=== PATIENT | female | born 1980 | race African-American/Black ===

== ENCOUNTER 2017-08-26 20:17 | Emergency (ER) | payer SELFPAY ==
--- NOTE | 2017-08-26 22:32 | RAD ---
CHEST PA AND LATERAL: History: 37-year-old female with cough, congestion, and fever for two days. FINDINGS: Heart size is normal. The lungs are clear. No pneumonia, edema, pleural effusion or other acute proce ss. IMPRESSION: No acute intrathoracic disease. No evidence for pneumonia. POS: [facility]
== END 2017-08-26 22:17 | disposition home or self-care (01) ==
LOC: ERS 20:17
DX: J06.9 Acute upper respiratory infection, unspecified (principal); G43.909 Migraine, unspecified, not intractable, without status migrainosus; I10 Essential (primary) hypertension
CPT/HCPCS: 71020; 99283

== ENCOUNTER 2017-11-14 14:49 | Emergency (ER) | payer SELFPAY | END 2017-11-14 19:23 | disposition left against medical advice (07) | LOC: ERS 14:49 | DX: Z53.21 Procedure and treatment not carried out due to patient leaving prior to being seen by health care provider (principal) ==

== ENCOUNTER 2017-11-14 19:40 | Emergency (ER) | payer SELFPAY ==
[2017-11-14] MEDS ORDERED: Ketorolac Tromethamine 30 MG/ML VIAL ONE (20:06)
[2017-11-14] MEDS ORDERED: Metoclopramide HCl 10 MG/2 ML VIAL ONE (20:06)
[2017-11-14] MEDS ORDERED: diphenhydrAMINE 50 MG/ML VIAL ONE (20:06)
== END 2017-11-14 21:23 | disposition home or self-care (01) ==
LOC: SCSER 19:40
DX: G43.909 Migraine, unspecified, not intractable, without status migrainosus (principal); I10 Essential (primary) hypertension
CPT/HCPCS: 96365; 96375; J1200; J1885; J2765

== ENCOUNTER 2017-12-15 07:49 | Emergency (ER) | payer SELFPAY ==
[2017-12-15 08:45] LABS: #Basophils 0.1 thou/uL (0.0-0.2); #Eosinphils 0.3 thou/uL (0.0-0.7); #Lymphocytes 2.9 thou/uL (1.20-3.40); #Monocytes 0.5 thou/uL (0.11-0.59); #Neutrophils 4.8 thou/uL (1.40-6.50); %Basophils 1.4 % (0.0-1.0); %Eosinophils 3.4 % (0.0-10.0); %Lymphocytes 33.9 % (21.0-51.0); %Monocytes 5.7 % (0.0-10.0); %Neutrophils 55.7 % (42.0-75.0); Hemoglobin 12.9 g/dL (12.0-16.0); Mean Corpuscular Hemoglobin 32.2 pg (27.0-31.0); Mean Corpuscular Volume 97.5 fl (81.0-99.0); Mean Platelet Volume 7.4 fL (7.4-10.4); Platelet Count 287 thou/uL (130-400); RBC Distribution Width 13.3 % (11.5-14.5); Red Blood Cell (RBC) Count 4.02 mill/uL (4.20-5.40); White Blood Cell (WBC) Count 8.7 thou/uL (4.8-10.8)
[2017-12-15 09:00] LABS: BHCG - Serum Negative (NEGATIVE); Pregs Control Background? CLEAR/WHITE (CLR/WHITE); Pregs Control Bar Appear? YES (CONTROL BAR)
== END 2017-12-15 09:19 | disposition home or self-care (01) ==
LOC: ERS 07:49
DX: N94.6 Dysmenorrhea, unspecified (principal); G43.909 Migraine, unspecified, not intractable, without status migrainosus; I10 Essential (primary) hypertension; Z79.899 Other long term (current) drug therapy
CPT/HCPCS: 36415; 84703; 85025; 99284

== ENCOUNTER 2017-12-16 16:13 | Emergency (ER) | payer SELFPAY ==
[2017-12-16 16:58] LABS: #Basophils 0.1 thou/uL (0.0-0.2); #Eosinphils 0.2 thou/uL (0.0-0.7); #Lymphocytes 4.1 thou/uL (1.20-3.40); #Monocytes 0.4 thou/uL (0.11-0.59); #Neutrophils 4.1 thou/uL (1.40-6.50); %Basophils 1.2 % (0.0-1.0); %Eosinophils 2.4 % (0.0-10.0); %Lymphocytes 46.1 % (21.0-51.0); %Monocytes 4.6 % (0.0-10.0); %Neutrophils 45.7 % (42.0-75.0); Hemoglobin 13.7 g/dL (12.0-16.0); Mean Corpuscular HGB CONC 35.1 g/dL (32.0-36.0); Mean Corpuscular Hemoglobin 33.2 pg (27.0-31.0); Mean Corpuscular Volume 94.6 fl (81.0-99.0); Mean Platelet Volume 8.9 fL (7.4-10.4); Platelet Count 304 thou/uL (130-400); RBC Distribution Width 13.2 % (11.5-14.5); Red Blood Cell (RBC) Count 4.12 mill/uL (4.20-5.40); White Blood Cell (WBC) Count 8.9 thou/uL (4.8-10.8)
[2017-12-16 17:03] LABS: Bilirubin Negative (Negative); Blood, Urine Large (Negative); Clarity Cloudy (Clear); Glucose, Urine (Dipstick) Negative (Negative); Leukocyte Negative (Negative); Nitrite Negative (Negative); Protein, Urine (Dipstick) Trace mg/dL (Neg-Trace); Specific Gravity, Urine 1.015 (1.005-1.030); Urobilinogen 0.2 mg/dL (0.2-1.0)
[2017-12-16 17:06] LABS: BHCG - Serum Negative (NEGATIVE); Pregs Control Background? CLEAR/WHITE (CLR/WHITE); Pregs Control Bar Appear? YES (CONTROL BAR)
[2017-12-16 17:12] LABS: RBC/HPF 21-50 HPF (0-3)
[2017-12-16] MEDS ORDERED: Ibuprofen 600 MG TAB ONE (17:12)
[2017-12-16 17:13] LABS: Bacteria/HPF 1+ HPF (None Seen)
[2017-12-19 00:56] LABS: Chlamydia by PCR Not Detected (NotDetected); GC by PCR Not Detected (NotDetected)
== END 2017-12-16 17:24 | disposition home or self-care (01) ==
LOC: SCSER 16:13
DX: N94.6 Dysmenorrhea, unspecified (principal); N93.9 Abnormal uterine and vaginal bleeding, unspecified; G43.909 Migraine, unspecified, not intractable, without status migrainosus; I10 Essential (primary) hypertension; Z79.899 Other long term (current) drug therapy
CPT/HCPCS: 36415; 81003; 81015; 84703; 85025; 87480; 87491; 87510; 87591; 87660; 99284

== ENCOUNTER 2018-07-05 13:23 | Emergency (ER) | payer SELFPAY ==
[2018-07-05] MEDS ORDERED: cloNIDine 0.1 MG TAB ONE (14:02)
[2018-07-05 14:19] LABS: #Basophils 0.1 thou/uL (0.0-0.2); #Lymphocytes 1.8 thou/uL (1.20-3.40); #Monocytes 0.3 thou/uL (0.11-0.59); %Basophils 0.7 % (0.0-1.0); %Lymphocytes 17.8 % (21.0-51.0); %Monocytes 3.1 % (0.0-10.0); %Neutrophils 78.5 % (42.0-75.0); Hemoglobin 13.4 g/dL (12.0-16.0); Mean Corpuscular HGB CONC 33.2 g/dL (32.0-36.0); Mean Corpuscular Hemoglobin 31.8 pg (27.0-31.0); Mean Corpuscular Volume 95.6 fL (78.0-98.0); Mean Platelet Volume 9.1 fL (7.4-10.4); Platelet Count 265 thou/uL (130-400); RBC Distribution Width 11.4 % (11.5-14.5); Red Blood Cell (RBC) Count 4.23 mill/uL (4.20-5.40); White Blood Cell (WBC) Count 10.1 thou/uL (4.8-10.8)
[2018-07-05 14:24] LABS: BHCG - Serum Negative (NEGATIVE); Pregs Control Background? CLEAR/WHITE (CLR/WHITE); Pregs Control Bar Appear? YES (CONTROL BAR)
[2018-07-05 14:34] LABS: ALT (SGPT) 17 U/L (8-55); AST (SGOT) 19 U/L (5-34); Albumin 4.7 g/dL (3.5-5.0); Alkaline Phosphatase 94 U/L (40-150); Anion Gap 16 mmol/L (10-20); BUN (Urea Nitrogen) 9 mg/dL (7.0-18.7); Bilirubin, Total 0.3 mg/dL (0.2-1.2); Calc. Creatinine Clearance 0 mL/min (70-130); Calcium 10.1 mg/dL (7.8-10.44); Carbon Dioxide 22 mmol/L (22-29); Chloride 106 mmol/L (98-107); Estimated GFR-MDRD Greater than 90; Globulin 4.2 g/dL (2.4-3.5); Glucose 116 mg/dL (70-105); Potassium 3.7 mmol/L (3.5-5.1); Protein, Total 8.9 g/dL (6.0-8.3); Sodium 140 mmol/L (136-145); Troponin I Less than 0.010 ng/mL (< 0.028)
--- NOTE | 2018-07-05 15:02 | RAD ---
RADIOGRAPH RIGHT ANKLE THREE VIEWS: 07/05/2018 HISTORY: A 38-year-old female with persistent bilateral ankle pain after a twisting injury last week. FINDINGS: The ankle mortise is congruent. Small osteophytes at the inferomedial and inferolateral aspects of t he ankle mortise. The talar dome is maintained. No fracture or subluxation. IMPRESSION: 1. No fracture. 2. Mild osteoarthrosis. POS: [facility]
--- NOTE | 2018-07-05 15:02 | RAD ---
SINGLE VIEW OF THE CHEST: Comparison: 09-24-15 History: High blood pressure, chest pain. FINDINGS: Single view of the chest shows a normal sized cardiomediastinal silhouette. There is no evidence of c onsolidation, mass, or pleural effusion. The bones are unremarkable. IMPRESSION: No evidence of acute cardiopulmonary disease. POS: [facility]
== END 2018-07-05 15:02 | disposition home or self-care (01) ==
LOC: SCSER 13:23
DX: S93.401A Sprain of unspecified ligament of right ankle, initial encounter (principal); I10 Essential (primary) hypertension; R00.0 Tachycardia, unspecified; G43.909 Migraine, unspecified, not intractable, without status migrainosus; X50.1XXA Overexertion from prolonged static or awkward postures, initial encounter
CPT/HCPCS: 71045; 80053; 84484; 84703; 85025; 85379; 93005

== ENCOUNTER 2018-07-29 06:17 | Emergency (ER) | payer SELFPAY ==
[2018-07-29] MEDS ORDERED: Ketorolac Tromethamine 30 MG/ML VIAL ONE (06:35)
[2018-07-29 07:09] LABS: #Basophils 0.2 thou/uL (0.0-0.2); #Eosinphils 0.3 thou/uL (0.0-0.7); #Lymphocytes 3.2 thou/uL (1.20-3.40); #Monocytes 1.2 thou/uL (0.11-0.59); #Neutrophils 8.3 thou/uL (1.40-6.50); %Basophils 1.4 % (0.0-1.0); %Lymphocytes 24.4 % (21.0-51.0); %Monocytes 9.2 % (0.0-10.0); Hemoglobin 10.7 g/dL (12.0-16.0); Mean Corpuscular HGB CONC 34.5 g/dL (32.0-36.0); Mean Corpuscular Hemoglobin 32.6 pg (27.0-31.0); Mean Corpuscular Volume 94.6 fL (78.0-98.0); Mean Platelet Volume 8.1 fL (7.4-10.4); Platelet Count 191 thou/uL (130-400); RBC Distribution Width 11.8 % (11.5-14.5); Red Blood Cell (RBC) Count 3.28 mill/uL (4.20-5.40); White Blood Cell (WBC) Count 13.2 thou/uL (4.8-10.8)
[2018-07-29 07:17] LABS: BHCG - Serum Negative (NEGATIVE); Pregs Control Background? CLEAR/WHITE (CLR/WHITE); Pregs Control Bar Appear? YES (CONTROL BAR)
[2018-07-29 07:25] LABS: Troponin I Less than 0.010 ng/mL (< 0.028)
[2018-07-29 07:26] LABS: CKMB 9.3 ng/mL (0-6.6)
[2018-07-29 08:09] LABS: ALT (SGPT) 16 U/L (8-55); AST (SGOT) 31 U/L (5-34); Albumin 3.9 g/dL (3.5-5.0); Alkaline Phosphatase 77 U/L (40-150); Anion Gap 14 mmol/L (10-20); BUN (Urea Nitrogen) 8 mg/dL (7.0-18.7); Bilirubin, Total 0.2 mg/dL (0.2-1.2); CK (CPK) 1571 U/L (29-168); Calc. Creatinine Clearance 0 mL/min (70-130); Calcium 8.6 mg/dL (7.8-10.44); Carbon Dioxide 21 mmol/L (22-29); Chloride 104 mmol/L (98-107); Estimated GFR-MDRD 89; Globulin 3.3 g/dL (2.4-3.5); Glucose 94 mg/dL (70-105); Potassium 3.7 mmol/L (3.5-5.1); Protein, Total 7.2 g/dL (6.0-8.3); Sodium 135 mmol/L (136-145)
--- NOTE | 2018-07-29 08:36 | RAD ---
SINGLE VIEW CHEST: Date: 07/29/18 COMPARISON: 07/05/18. HISTORY: Cough for 3 days. Fever. FINDINGS: Single view of the chest shows a normal sized cardiomediastinal silhouette. There is no evidence of c onsolidation, mass, or pleural effusion. The bones are unremarkable. IMPRESSION: No evidence of acute cardiopulmonary disease. POS: [facility]
[2018-07-29] MEDS ORDERED: Acetaminophen 500 MG TAB ONE (08:42)
[2018-07-29 08:53] LABS: Bilirubin Negative (Negative); Blood, Urine Moderate (Negative); Clarity Clear (Clear); Glucose, Urine (Dipstick) Negative (Negative); Leukocyte Negative (Negative); Nitrite Negative (Negative); Protein, Urine (Dipstick) Negative (Neg-Trace); Specific Gravity, Urine 1.015 (1.005-1.030); Urobilinogen 0.2 mg/dL (0.2-1.0); pH, Urine 7.5 (5.0-9.0)
[2018-07-29 09:02] LABS: Bacteria/HPF None Seen HPF (None Seen); Squamous Epithelial None Seen HPF (0-3); WBC/HPF None Seen HPF (0-3)
[2018-07-29 09:03] LABS: Crystals/HPF 1+ STARCH HPF (Negative)
[2018-07-29 09:05] LABS: Hyaline Casts/LPF NONE SEEN LPF (0-3 Hyaline)
[2018-07-29 11:32] LABS: CKMB 6.2 ng/mL (0-6.6); Troponin I Less than 0.010 ng/mL (< 0.028)
[2018-07-29] MEDS ORDERED: Acetaminophen 325 MG TAB ONE (16:21)
[2018-07-29] MEDS ORDERED: HYDROcodone/Acetaminophen 5/325 mg Tablet ONE ×2 (16:22→21:21)
== END 2018-07-30 00:53 | disposition home or self-care (01) ==
LOC: SCSER 06:17
DX: R50.9 Fever, unspecified (principal); R05 Cough; R09.81 Nasal congestion; R11.0 Nausea; D64.9 Anemia, unspecified; M62.82 Rhabdomyolysis; I10 Essential (primary) hypertension; Z79.899 Other long term (current) drug therapy
CPT/HCPCS: 36415; 71045; 80053; 81003; 81015; 82553; 83605; 84484; 84703; 85025; 87804; 93005; 96360; 96361; J1885

== ENCOUNTER 2018-08-12 15:47 | Outpatient (CLI) | payer OTHER ==
--- NOTE | 2018-08-12 21:13 | MRI ---
RIGHT ANKLE MRI WITHOUT IV CONTRAST: HISTORY: A 38-year-old female with a history of S93.401D, sprain of right ankle, subsequent encounter. Contin ued pain and swelling of the lateral malleolus, after an injury at work. FINDINGS: There is indistinction of the anterior talofibular ligament, evidence for anterior talofibular ligame nt sprain. There is also mild indistinction of the calcaneofibular ligament, suggesting some possibl e associated sprain as well. The posterior talofibular ligament and the medial collateral ligament c omplex regions appear intact. There is a small, 0.5 cm in diameter, subchondral cystic focus of the central medial tibia, at the tibiotalar joint. Probably a small osteochondral lesion. The syndesmot ic ligament appears intact. The flexure, extensor, and peroneus tendons appear intact. The Achilles tendon and the plantar fascia are unremarkable. No evidence for other significant acute abnormal ma rrow signal. Sinus tarsi in the spring ligament regions are unremarkable. Minimal indistinction of the inferior talofibular ligament and the calcaneal fibular ligament, eviden ce for a minimal sprain. Small osteochondral lesion involving the distal central, medial tibia at the tibiotalar joint. No ev idence for other significant acute internal derangement. POS: [facility]
== END 2018-08-12 15:48 | disposition home or self-care (01) ==
LOC: MRI 15:47
PROVIDERS: ATTEND Family Medicine
DX: S93.401D Sprain of unspecified ligament of right ankle, subsequent encounter (principal)

== ENCOUNTER 2018-09-22 20:48 | Emergency (ER) | payer SELFPAY ==
[2018-09-22] MEDS ORDERED: Morphine 4 MG/ML Carpuject ONE ×2 (21:05→22:58)
[2018-09-22] MEDS ORDERED: Ondansetron PF 4 MG/2 ML Vial ONE (21:05)
[2018-09-22 21:20] LABS: Bilirubin Negative (Negative); Blood, Urine Negative (Negative); Clarity Slightly Cloudy (Clear); Glucose, Urine (Dipstick) Negative (Negative); Leukocyte Negative (Negative); Nitrite Negative (Negative); Protein, Urine (Dipstick) Negative (Neg-Trace); Urobilinogen 0.2 mg/dL (0.2-1.0)
[2018-09-22 21:23] LABS: Pregnancy Test - Urine (BHCG) Negative (Negative); Pregu Control Background? CLEAR/WHITE (CLR/WHITE); Pregu Control Bar Appear? YES (CONTROL BAR)
[2018-09-22 21:28] LABS: #Basophils 0.2 thou/uL (0.0-0.2); #Eosinphils 0.4 thou/uL (0.0-0.7); #Lymphocytes 4.5 thou/uL (1.20-3.40); #Neutrophils 4.6 thou/uL (1.40-6.50); %Basophils 1.4 % (0.0-1.0); %Eosinophils 3.3 % (0.0-10.0); %Lymphocytes 42.2 % (21.0-51.0); %Monocytes 9.7 % (0.0-10.0); %Neutrophils 43.4 % (42.0-75.0); Hemoglobin 13.1 g/dL (12.0-16.0); Mean Corpuscular HGB CONC 33.6 g/dL (32.0-36.0); Mean Corpuscular Hemoglobin 33.1 pg (27.0-31.0); Mean Corpuscular Volume 98.4 fL (78.0-98.0); Mean Platelet Volume 7.9 fL (7.4-10.4); Platelet Count 268 thou/uL (130-400); RBC Distribution Width 12.5 % (11.5-14.5); Red Blood Cell (RBC) Count 3.95 mill/uL (4.20-5.40); White Blood Cell (WBC) Count 10.6 thou/uL (4.8-10.8)
[2018-09-22 21:43] LABS: ALT (SGPT) 35 U/L (8-55); AST (SGOT) 141 U/L (5-34); Albumin 4.1 g/dL (3.5-5.0); Alkaline Phosphatase 76 U/L (40-150); Anion Gap 15 mmol/L (10-20); BUN (Urea Nitrogen) 5 mg/dL (7.0-18.7); Bilirubin, Total 0.3 mg/dL (0.2-1.2); Calc. Creatinine Clearance 0 mL/min (70-130); Calcium 8.6 mg/dL (7.8-10.44); Carbon Dioxide 23 mmol/L (22-29); Chloride 102 mmol/L (98-107); Estimated GFR-MDRD 89; Globulin 3.6 g/dL (2.4-3.5); Glucose 105 mg/dL (70-105); Potassium 3.4 mmol/L (3.5-5.1); Protein, Total 7.7 g/dL (6.0-8.3); Sodium 137 mmol/L (136-145)
--- NOTE | 2018-09-22 22:13 | CT ---
CT ABDOMEN AND PELVIS NONCONTRAST: 09/22/2018 HISTORY: Right flank pain and lower back pain for three days. COMPARISON: Post contrast CT abdomen and pelvis from 01/14/2017. FINDINGS: Lack of intravenous contrast limits sensitivity for evaluation of the parenchymal organs. However, t he lung bases, liver, spleen, pancreas, bilateral adrenal glands, kidneys, and urinary bladder demons trate a grossly normal, nonenhanced CT appearance. No renal calculi are seen bilaterally, and there is no hydronephrosis. The visualized proximal urete rs are normal in caliber, and no ureteral calculus is visualized. The distal ureters are not well vi sualized, and no definitive calcifications are seen along the expected course of either ureter. Ther e are gonadal vein calcifications seen bilaterally. Multiple calcifications seen in the pelvis are l ikely attributable to multiple phleboliths, which were also present on prior exam. The appendix is visualized and is normal in caliber. The uterus has a grossly normal CT appearance for the patient's age. A low density area is seen in t he expected location of the cervix, which may represent a nabothian cyst. There is a small amount of retained fecal material in the ascending colon. The small bowel is normal in caliber. IMPRESSION: 1. Limited evaluation of the distal ureters bilaterally, but no definitive ureteral calculus is seen . There are no renal calculi identified, and there is no hydronephrosis. 2. No CT evidence of appendicitis. 3. Small to moderate amount of retained fecal material seen in the ascending colon. POS: [facility]
[2018-09-22] MEDS ORDERED: Polyethylene Glycol 3350 17 GM Packet ONE (22:21)
== END 2018-09-22 23:28 | disposition home or self-care (01) ==
LOC: SCSER 20:48
DX: K59.00 Constipation, unspecified (principal); G43.909 Migraine, unspecified, not intractable, without status migrainosus; I10 Essential (primary) hypertension; Z79.899 Other long term (current) drug therapy
CPT/HCPCS: 74176; 80053; 81003; 81025; 85025; 96361; 96372; 96374; 96375; 96376; J2270; J2405

== ENCOUNTER 2018-12-28 23:49 | Emergency (ER) | payer SELFPAY ==
[2018-12-29] MEDS ORDERED: Acetaminophen 500 MG TAB ONE (00:25)
[2018-12-29] MEDS ORDERED: Metoclopramide HCl 10 MG/2 ML VIAL ONE (00:25)
[2018-12-29] MEDS ORDERED: diphenhydrAMINE 50 MG/ML VIAL ONE (00:25)
== END 2018-12-29 01:34 | disposition home or self-care (01) ==
LOC: SCSER 23:49
DX: G43.909 Migraine, unspecified, not intractable, without status migrainosus (principal); M54.41 Lumbago with sciatica, right side; I10 Essential (primary) hypertension; Z79.899 Other long term (current) drug therapy
CPT/HCPCS: 96365; 96375; J1200; J2765

== ENCOUNTER 2019-04-25 11:13 | Emergency (ER) | payer SELFPAY ==
[2019-04-25] MEDS ORDERED: HYDROcodone/Acetaminophen 10/325 mg Tablet ONE (12:05)
[2019-04-25 12:35] LABS: #Basophils 0.1 thou/uL (0.0-0.2); #Eosinphils 0.2 thou/uL (0.0-0.7); #Lymphocytes 3.7 thou/uL (1.20-3.40); #Monocytes 0.5 thou/uL (0.11-0.59); #Neutrophils 5.9 thou/uL (1.40-6.50); %Basophils 1.4 % (0.0-1.0); %Eosinophils 1.5 % (0.0-10.0); %Lymphocytes 35.7 % (21.0-51.0); %Monocytes 4.8 % (0.0-10.0); %Neutrophils 56.6 % (42.0-75.0); Hemoglobin 13.9 g/dL (12.0-16.0); Mean Corpuscular Hemoglobin 33.6 pg (27.0-31.0); Mean Corpuscular Volume 98.7 fL (78.0-98.0); Mean Platelet Volume 8.5 fL (7.4-10.4); Platelet Count 302 thou/uL (130-400); RBC Distribution Width 11.9 % (11.5-14.5); Red Blood Cell (RBC) Count 4.15 mill/uL (4.20-5.40); White Blood Cell (WBC) Count 10.4 thou/uL (4.8-10.8)
[2019-04-25 12:42] LABS: BHCG - Serum Negative (NEGATIVE); Pregs Control Background? CLEAR/WHITE (CLR/WHITE); Pregs Control Bar Appear? YES (CONTROL BAR)
[2019-04-25 12:57] LABS: ALT (SGPT) 8 U/L (8-55); AST (SGOT) 11 U/L (5-34); Albumin 4.5 g/dL (3.5-5.0); Alkaline Phosphatase 99 U/L (40-150); Anion Gap 15 mmol/L (10-20); BUN (Urea Nitrogen) 9 mg/dL (7.0-18.7); Bilirubin, Total 0.2 mg/dL (0.2-1.2); Calc. Creatinine Clearance 0 mL/min (70-130); Calcium 9.4 mg/dL (7.8-10.44); Carbon Dioxide 23 mmol/L (22-29); Chloride 103 mmol/L (98-107); Estimated GFR-MDRD 88; Globulin 3.6 g/dL (2.4-3.5); Glucose 93 mg/dL (70-105); Lipase 50 U/L (8-78); Potassium 4.1 mmol/L (3.5-5.1); Protein, Total 8.1 g/dL (6.0-8.3); Sodium 137 mmol/L (136-145)
[2019-04-25 14:13] LABS: Bilirubin Negative (Negative); Blood, Urine Negative (Negative); Clarity Clear (Clear); Glucose, Urine (Dipstick) Normal (Negative); Leukocyte Negative Leu/uL (Negative); Nitrite Negative (Negative); Protein, Urine (Dipstick) Negative (Neg-Trace); Urobilinogen Normal mg/dL (Less than 2)
== END 2019-04-25 14:50 | disposition home or self-care (01) ==
LOC: ERS 11:13
DX: R10.9 Unspecified abdominal pain (principal); G43.909 Migraine, unspecified, not intractable, without status migrainosus; I10 Essential (primary) hypertension; Z79.899 Other long term (current) drug therapy
CPT/HCPCS: 36415; 80053; 81003; 83690; 84703; 85025; 99284

== ENCOUNTER 2020-11-04 18:41 | Emergency (ER) | payer SELFPAY ==
[2020-11-04] MEDS ORDERED: HYDROcodone/Acetaminophen 5/325 mg Tablet ONE (19:07)
== END 2020-11-04 19:28 | disposition home or self-care (01) ==
LOC: ERS 18:41
DX: K02.9 Dental caries, unspecified (principal); I10 Essential (primary) hypertension
CPT/HCPCS: 99283

== ENCOUNTER 2021-12-24 21:46 | Inpatient (IN) | payer SELFPAY ==
[2021-12-25] MEDS ORDERED: Acetaminophen 500 MG TAB ONE (01:00)
[2021-12-25 01:24] LABS: Bilirubin Negative (Negative); Blood, Urine Negative (Negative); Clarity Clear (Clear); Glucose, Urine (Dipstick) Normal (Negative); Ketone, Urine Negative (Negative); Leukocyte Negative Leu/uL (Negative); Nitrite Negative (Negative); Pregnancy Test - Urine (BHCG) Negative (Negative); Pregu Control Background? CLEAR/WHITE (CLR/WHITE); Pregu Control Bar Appear? YES (CONTROL BAR); Protein, Urine (Dipstick) Negative (Neg-Trace); Specific Gravity 1.012 (1.002-1.036); Specific Gravity, Urine 1.012 (1.002-1.036); Urobilinogen Normal mg/dL (Less than 2)
[2021-12-25 01:33] LABS: #Basophils 0.2 thou/uL (0.0-0.2); #Eosinphils 0.3 thou/uL (0.0-0.7); #Lymphocytes 4.4 thou/uL (1.20-3.40); #Monocytes 0.7 thou/uL (0.11-0.59); #Neutrophils 8.4 thou/uL (1.40-6.50); %Basophils 1.1 % (0.0-1.0); %Lymphocytes 31.8 % (21.0-51.0); %Monocytes 4.6 % (0.0-10.0); %Neutrophils 60.4 % (42.0-75.0); Hemoglobin 15.1 g/dL (12.0-16.0); Mean Corpuscular HGB CONC 34.1 g/dL (32.0-36.0); Mean Corpuscular Hemoglobin 33.8 pg (27.0-31.0); Mean Corpuscular Volume 99.2 fL (78.0-98.0); Mean Platelet Volume 7.5 fL (7.4-10.4); Platelet Count 373 thou/uL (130-400); RBC Distribution Width 11.9 % (11.5-14.5); Red Blood Cell (RBC) Count 4.46 mill/uL (4.20-5.40)
[2021-12-25 01:52] LABS: ALT (SGPT) 12 U/L (8-55); AST (SGOT) 15 U/L (5-34); Alkaline Phosphatase 93 U/L (40-110); Anion Gap 14 mmol/L (10-20); BUN (Urea Nitrogen) 10 mg/dL (7.0-18.7); Bilirubin, Total 0.2 mg/dL (0.2-1.2); Calc. Creatinine Clearance 0 mL/min (70-130); Calcium 10.3 mg/dL (7.8-10.44); Carbon Dioxide 24 mmol/L (22-29); Chloride 102 mmol/L (98-107); Globulin 4.4 g/dL (2.4-3.5); Glucose 107 mg/dL (70-105); Potassium 4.1 mmol/L (3.5-5.1); Protein, Total 9.4 g/dL (6.0-8.3); Sodium 136 mmol/L (136-145)
[2021-12-25] MEDS ORDERED: Ketorolac Tromethamine 30 MG/ML VIAL ONE (02:17)
[2021-12-25] MEDS ORDERED: cefTRIAXone\\ROCEPHIN 1 GM VIAL ONE (04:30)
[2021-12-25] MEDS ORDERED: Prochlorperazine 10 MG/2 ML VIAL ONE (04:49)
[2021-12-25] MEDS ORDERED: diphenhydrAMINE 50 MG/ML VIAL ONE (04:49)
[2021-12-25] MEDS ORDERED: Azithromycin 500 MG VIAL ONE (05:44)
[2021-12-25] MEDS ORDERED: Ondansetron ODT 4 MG TAB PO PRN (06:29)
[2021-12-25] MEDS ORDERED: Ondansetron PF 4 MG/2 ML Vial IVP PRN (06:29)
[2021-12-25] MEDS ORDERED: Acetaminophen 325 MG TAB PO PRN (06:29)
[2021-12-25] MEDS ORDERED: Acetaminophen 650 MG Suppository PR PRN (06:29)
[2021-12-25 10:11] VITALS: BMI 41.7
[2021-12-25] MEDS: traMADol HCl 50 MG TAB PO PRN ×2 (10:55→17:37)
[2021-12-25] MEDS: Fluticasone Propionate Nasal Spray 16 gm Bottle NASAL SCH (10:57)
[2021-12-25] MEDS: Sodium Chloride 0.9% 1,000 ML IV SCH ×2 (10:57→21:02)
[2021-12-25] MEDS: Ampicillin/Sulbactam 1.5 GM in Sodium Chloride 0.9% 100 ML IVPB SCH ×3 (10:57→21:01)
[2021-12-25] MEDS: Enoxaparin Sodium 40 MG/0.4 ML SYRINGE SC SCH (10:57)
[2021-12-25] MEDS ORDERED: hydrALAZINE 20 MG/ML VIAL SLOW IVP PRN (11:09)
[2021-12-25 16:19] LABS: SARS-CoV-2 PCR by NAA Not Detected (NotDetected)
[2021-12-25] MEDS ORDERED: Metoprolol Tartrate 5 MG/5 ML VIAL IVP PRN (22:01)
[2021-12-26] MEDS: traMADol HCl 50 MG TAB PO PRN ×2 (01:18→09:38)
[2021-12-26] MEDS: Ampicillin/Sulbactam 1.5 GM in Sodium Chloride 0.9% 100 ML IVPB SCH ×3 (01:46→16:00)
[2021-12-26 04:50] LABS: #Basophils 0.1 thou/uL (0.0-0.2); #Eosinphils 0.2 thou/uL (0.0-0.7); #Lymphocytes 5.3 thou/uL (1.20-3.40); #Monocytes 0.9 thou/uL (0.11-0.59); #Neutrophils 6.1 thou/uL (1.40-6.50); %Basophils 0.9 % (0.0-1.0); %Eosinophils 1.9 % (0.0-10.0); %Lymphocytes 41.8 % (21.0-51.0); %Monocytes 7.1 % (0.0-10.0); %Neutrophils 48.3 % (42.0-75.0); Mean Corpuscular HGB CONC 33.9 g/dL (32.0-36.0); Mean Corpuscular Hemoglobin 34.4 pg (27.0-31.0); Mean Platelet Volume 7.5 fL (7.4-10.4); Platelet Count 306 thou/uL (130-400); RBC Distribution Width 11.9 % (11.5-14.5); Red Blood Cell (RBC) Count 3.79 mill/uL (4.20-5.40); White Blood Cell (WBC) Count 12.7 thou/uL (4.8-10.8)
[2021-12-26 05:12] LABS: Anion Gap 12 mmol/L (10-20); BUN (Urea Nitrogen) 8 mg/dL (7.0-18.7); Calc. Creatinine Clearance 155 mL/min (70-130); Calcium 8.5 mg/dL (7.8-10.44); Carbon Dioxide 22 mmol/L (22-29); Chloride 106 mmol/L (98-107); Glucose 100 mg/dL (70-105); Potassium 3.9 mmol/L (3.5-5.1); Sodium 136 mmol/L (136-145)
[2021-12-26] MEDS: Sodium Chloride 0.9% 1,000 ML IV SCH (09:44)
[2021-12-26] MEDS: Fluticasone Propionate Nasal Spray 16 gm Bottle NASAL SCH (11:28)
[2021-12-26] MEDS: Enoxaparin Sodium 40 MG/0.4 ML SYRINGE SC SCH (11:29)
[2021-12-26 11:50] VITALS: TEMP 98.8
[2021-12-26] MEDS ORDERED: Carvedilol 6.25 MG TAB PO SCH ×2 (12:15→17:00)
[2021-12-26] MEDS ORDERED: Sodium Chloride 0.9% 1,000 ML IV SCH (12:15)
[2021-12-26 14:34] VITALS: BP 179/102
== END 2021-12-26 15:36 | disposition left against medical advice (07) | DRG 872 ==
LOC: ERS 21:46 → 2SW 12-25 05:04 → OBSVTOIN 12-26 08:40
PROVIDERS: ADMIT Student in an Organized Health Care Education/Training Program; ATTEND Internal Medicine
DX: A41.9 Sepsis, unspecified organism (principal); N17.9 Acute kidney failure, unspecified; Z68.41 Body mass index [BMI] 40.0-44.9, adult; I10 Essential (primary) hypertension; G43.909 Migraine, unspecified, not intractable, without status migrainosus; J06.9 Acute upper respiratory infection, unspecified; R65.20 Severe sepsis without septic shock; J32.9 Chronic sinusitis, unspecified; E66.01 Morbid (severe) obesity due to excess calories; Z20.822 Contact with and (suspected) exposure to COVID-19; M79.604 Pain in right leg; Z98.51 Tubal ligation status; Z79.899 Other long term (current) drug therapy
CPT/HCPCS: 36415; 71045; 71275; 72100; 80048; 80053; 81003; 81025; 84443; 85025; 87040; 87804; 93005; 94760; 96365; 96372; 96375; 96376; G0378; J0295; J0456; J0696; J0780; J1200; J1650; J1885; J3490; J7050; U0003; U0005

== ENCOUNTER 2022-02-21 10:38 | Outpatient (CLI) | payer OTHER | END 2022-02-21 10:39 | disposition home or self-care (01) | LOC: BICRAD 10:38 | PROVIDERS: ATTEND Internal Medicine | DX: Z02.71 Encounter for disability determination (principal) | CPT/HCPCS: 71046; 72100 ==

== ENCOUNTER 2022-10-28 10:54 | Emergency (ER) | payer OTHER, SELFPAY ==
[2022-10-28] MEDS ORDERED: Bacitracin 1 PK ONE (11:48)
[2022-10-28] MEDS ORDERED: Lidocaine 1% PF 5 ML VIAL ONE (11:48)
== END 2022-10-28 12:17 | disposition home or self-care (01) ==
LOC: ERS 10:54
DX: S61.212A Laceration without foreign body of right middle finger without damage to nail, initial encounter (principal); W26.8XXA Contact with other sharp object(s), not elsewhere classified, initial encounter; I10 Essential (primary) hypertension
CPT/HCPCS: 12001

== ENCOUNTER 2022-11-12 11:53 | Emergency (ER) | payer SELFPAY | END 2022-11-12 12:30 | disposition home or self-care (01) | LOC: ERS 11:53 | DX: S61.212A Laceration without foreign body of right middle finger without damage to nail, initial encounter (principal); I10 Essential (primary) hypertension; W45.8XXA Other foreign body or object entering through skin, initial encounter ==

== ENCOUNTER 2023-09-23 20:54 | Emergency (ER) | payer SELFPAY ==
[2023-09-23] MEDS ORDERED: HYDROcodone/Acetaminophen 10/325 mg Tablet ONE (21:38)
[2023-09-23] MEDS ORDERED: Orphenadrine Citrate 60 MG/2 ML VIAL ONE (21:47)
== END 2023-09-23 23:21 | disposition home or self-care (01) ==
LOC: ERS 20:54
DX: M54.50 Low back pain, unspecified (principal); I10 Essential (primary) hypertension; V48.6XXA Car passenger injured in noncollision transport accident in traffic accident, initial encounter; Z79.899 Other long term (current) drug therapy
CPT/HCPCS: 93005; 96372; J2360

== ENCOUNTER 2024-10-03 12:02 | Emergency (ER) | payer SELFPAY ==
[2024-10-03 14:48] LABS: Pregnancy Test - Urine (BHCG) Negative (Negative); Pregu Control Background? CLEAR/WHITE (CLR/WHITE); Pregu Control Bar Appear? YES (CONTROL BAR); Specific Gravity 1.005 (1.002-1.036)
[2024-10-03 14:53] LABS: Bacteria/HPF None Seen HPF (None Seen); Bilirubin Negative (Negative); Blood, Urine Negative (Negative); CAUTI Indications for Culture Pelvic or flank pain; Clarity Clear (Clear); Glucose, Urine (Dipstick) Normal (Negative); Ketone, Urine Negative (Negative); Leukocyte Negative Leu/uL (Negative); Nitrite Negative (Negative); Protein, Urine (Dipstick) Negative (Neg-Trace); RBC/HPF 0-3 HPF (0-3); Specific Gravity, Urine 1.005 (1.002-1.036); Squamous Epithelial None Seen HPF (0-3); Urobilinogen Normal mg/dL (Less than 2); WBC/HPF 0-3 HPF (0-3); pH, Urine 6.5 (5.0-9.0)
[2024-10-03 15:05] LABS: Urine Culture Reflex No No
[2024-10-03] MEDS ORDERED: Orphenadrine Citrate 60 MG/2 ML VIAL ONE (17:28)
[2024-10-03] MEDS ORDERED: HYDROcodone/Acetaminophen 10/325 mg Tablet ONE (17:28)
== END 2024-10-03 18:00 ==
LOC: ERS 12:02
DX: M54.50 Low back pain, unspecified (principal); I10 Essential (primary) hypertension
CPT/HCPCS: 81001; 81025; 96372; 99283; J2360

== ENCOUNTER 2025-06-23 09:27 | Outpatient (CLI) | payer OTHER | END 2025-06-23 09:28 | disposition home or self-care (01) | LOC: BICMAMMO 09:27 | PROVIDERS: ATTEND Family Medicine | DX: Z12.31 Encounter for screening mammogram for malignant neoplasm of breast (principal); Z80.3 Family history of malignant neoplasm of breast | CPT/HCPCS: 77063; 77067 ==

== ENCOUNTER 2025-08-07 15:02 | Emergency (ER) | payer OTHER ==
[2025-08-07] MEDS ORDERED: HYDROcodone/Acetaminophen 10/325 mg Tablet ONE (15:34)
== END 2025-08-07 15:58 | disposition home or self-care (01) ==
LOC: ERS 15:02
DX: L60.0 Ingrowing nail (principal); I10 Essential (primary) hypertension
CPT/HCPCS: 99283